=== PATIENT | male | born 1960 | race Caucasian/White ===

== ENCOUNTER 2017-05-23 06:05 | Inpatient (IN) ==
[2017-05-23] MEDS ORDERED: ALBUTEROL/IPRATROPIUM 3 ML NEB RESP TX STA (07:01)
[2017-05-23] MEDS ORDERED: cefTRIAXone 1,000 MG in SODIUM CHLORIDE 0.9% 100 ML IV STA (07:01)
[2017-05-23] MEDS ORDERED: methylPREDNISolone SOD SUC 125 MG/2 ML VIAL IV STA (07:01)
[2017-05-23 07:10] LABS: Basophils % 0.2 % (0.0-0.8); Eosinophils # 0.2 10*3/uL (0.0-0.87); Eosinophils % 1.6 % (0.00-10.9); Hematocrit 42.9 VOL% (42.0-52.0); Hemoglobin 14.4 GM/DL (14.0-18.0); Immature Granulocytes Absolute 0.12 #; Lymphocytes % 16.6 % (21.2-54.2); Mean Corpuscular HGB Conc 33.6 GM/DL (32-36); Mean Corpuscular Hemoglobin 30 PG (27-34); Mean Corpuscular Volume 89.9 FL (87-102); Mean Platelet Volume 10.4 FL (9.6-12.0); Monocytes % 8.5 % (1.7-12.7); Neutrophils # 8.7 10*3/uL (1.4-7.4); Neutrophils % 72.1 % (38.7-73.9); Platelet Count 275 T/CUMM (130-400); Red Blood Count 4.77 MC/CUMM (3.8-5.5); Red Cell Distribution Width 13.2 % (9.3-17.3); White Blood Count 12.1 T/CUMM (4-12)
[2017-05-23] MEDS ORDERED: cefTRIAXone 1,000 MG VIAL ONE (07:20)
[2017-05-23] MEDS ORDERED: methylPREDNISolone SOD SUC 125 MG/2 ML VIAL ONE (07:20)
[2017-05-23 08:27] LABS: Albumin 3.2 G/DL (3.4-5.0); Bilirubin,Total 0.5 MG/DL (0.2-1.0); Calcium 8.6 MG/DL (8.5-10.1); Magnesium 2.3 MG/DL (1.8-2.4); Osmolality,Calculated 282.3 MOS/KG (273-304); Total Protein 6.8 G/DL (6.4-8.3); Troponin I Only 0.015 NG/ML (0.00-0.045)
[2017-05-23] MEDS ORDERED: ACETAMINOPHEN 325 MG TABLET PO PRN (09:35)
[2017-05-23] MEDS ORDERED: guaiFENesin/DM ER 600-30 MG TABLET PO PRN (09:35)
[2017-05-23] MEDS ORDERED: LACTULOSE 20 GM/30 ML UDCUP PO PRN (09:35)
[2017-05-23] MEDS ORDERED: ALBUTEROL/IPRATROPIUM 3 ML NEB RESP TX PRN (09:35)
[2017-05-23] MEDS ORDERED: ONDANSETRON 4 MG/2 ML VIAL IV PRN (09:35)
[2017-05-23] MEDS ORDERED: ALBUTEROL 2.5 MG/3 ML NEB RESP TX PRN (11:00)
[2017-05-23] MEDS: ENOXAPARIN 40 MG/0.4 ML SYRINGE SUBCUT SCH (11:07)
[2017-05-23] MEDS: AZITHROMYCIN INJ 500 MG in SODIUM CHLORIDE 0.9% 250 ML IV SCH (11:35)
[2017-05-23] MEDS ORDERED: LORazepam 2 MG/1 ML VIAL IV ONE (13:57)
[2017-05-23] MEDS: methylPREDNISolone SOD SUC 40 MG/1 ML VIAL IV SCH ×2 (15:08→23:21)
[2017-05-23] MEDS: CEFEPIME 1,000 MG in SYRINGE 1 EACH IV SCH (15:09)
[2017-05-23] MEDS: ALBUTEROL/IPRATROPIUM 3 ML NEB RESP TX SCH ×2 (16:04→19:31)
[2017-05-23] MEDS: LORazepam 0.5 MG TABLET PO PRN ×2 (20:20→20:21)
[2017-05-23] MEDS ORDERED: TEMAZEPAM 15 MG CAPSULE PO SCH (21:00)
[2017-05-24] MEDS: ALBUTEROL/IPRATROPIUM 3 ML NEB RESP TX SCH ×5 (00:04→19:53)
[2017-05-24] MEDS: CEFEPIME 1,000 MG in SYRINGE 1 EACH IV SCH ×2 (01:15→14:53)
[2017-05-24] MEDS ORDERED: HALOPERIDOL 5 MG/ML AMP IV ONE (01:49)
[2017-05-24] MEDS ORDERED: LEVALBUTEROL 1.25 MG/3 ML NEB RESP TX PRN (04:12)
[2017-05-24] MEDS: LORazepam 0.5 MG TABLET PO PRN (04:57)
[2017-05-24] MEDS ORDERED: clonazePAM 0.5 MG TABLET PO SCH ×2 (05:00→06:30)
[2017-05-24 05:27] LABS: ABG Base Excess 2.8 MMOL/L (-2.5-2.5); ABG HCO3 27.3 MMOL/L (20-26); ABG Oxygen Saturation 91.2 % (95-100); ABG PCO2 41.6 MM HG (35-48); ABG PH 7.435 (7.35-7.45); ABG TCO2 28.6 MMOL/L (23-27); Allen Test Positive
[2017-05-24] MEDS ORDERED: SODIUM CHLORIDE 0.9% 1,000 ML IV ONE (05:52)
[2017-05-24] MEDS ORDERED: cefTRIAXone 1,000 MG in SYRINGE 1 EACH IV SCH (08:00)
[2017-05-24] MEDS: LORazepam 2 MG/1 ML VIAL IV PRN ×2 (08:59→23:04)
[2017-05-24] MEDS: methylPREDNISolone SOD SUC 40 MG/1 ML VIAL IV SCH ×3 (08:59→23:20)
[2017-05-24] MEDS: QUEtiapine 25 MG TABLET PO SCH ×2 (09:00→21:13)
[2017-05-24] MEDS ORDERED: PANTOPRAZOLE 40 MG TABLET PO SCH (09:00)
[2017-05-24] MEDS: SODIUM CHLORIDE 0.9% 1,000 ML IV SCH ×3 (09:28→21:14)
[2017-05-24] MEDS: ENOXAPARIN 40 MG/0.4 ML SYRINGE SUBCUT SCH (10:36)
[2017-05-24] MEDS ORDERED: LORazepam 2 MG/1 ML VIAL IV ONE (11:35)
[2017-05-24] MEDS ORDERED: AMIODARONE 150 MG/3 ML VIAL ONE (11:38)
[2017-05-24 11:48] LABS: ABG Base Excess 2.1 MMOL/L (-2.5-2.5); ABG HCO3 26.3 MMOL/L (20-26); ABG Oxygen Saturation 99.6 % (95-100); ABG PCO2 55.1 MM HG (35-48); ABG PH 7.338 (7.35-7.45); ABG TCO2 25.3 MMOL/L (23-27)
[2017-05-24] MEDS ORDERED: ETOMIDATE 20 MG/10 ML VIAL IV ONE ×2 (11:53→12:00)
[2017-05-24] MEDS ORDERED: SUCCINYLCHOLINE 200 MG/10 ML VIAL ONE (11:53)
[2017-05-24] MEDS ORDERED: MIDAZOLAM 2 MG/2 ML VIAL ONE (11:57)
[2017-05-24] MEDS ORDERED: MIDAZOLAM 2 MG/2 ML VIAL IV ONE (12:00)
[2017-05-24] MEDS ORDERED: SUCCINYLCHOLINE 200 MG/10 ML VIAL IV ONE (12:00)
[2017-05-24] MEDS ORDERED: AMIODARONE 150 MG/3 ML VIAL IV ONE (12:00)
[2017-05-24] MEDS ORDERED: PROPOFOL 1,000 MG/100 ML BOTTLE IV ONE (12:07)
[2017-05-24] MEDS ORDERED: METOPROLOL TARTRATE 5 MG/5 ML VIAL IV ONE (12:10)
[2017-05-24 12:19] LABS: Basophils % 0.1 % (0.0-0.8); Eosinophils % 0.1 % (0.00-10.9); Hematocrit 44.3 VOL% (42.0-52.0); Hemoglobin 15.4 GM/DL (14.0-18.0); Immature Granulocytes % 0.6 %; Immature Granulocytes Absolute 0.12 #; Lymphocytes # 1.3 10*3/uL (1.4-4.0); Lymphocytes % 6.8 % (21.2-54.2); Mean Corpuscular HGB Conc 34.8 GM/DL (32-36); Mean Corpuscular Hemoglobin 30 PG (27-34); Monocytes # 0.5 10*3/uL (0.11-0.8); Monocytes % 2.9 % (1.7-12.7); Neutrophils # 16.7 10*3/uL (1.4-7.4); Neutrophils % 89.5 % (38.7-73.9); Platelet Count 281 T/CUMM (130-400); Red Blood Count 5.09 MC/CUMM (3.8-5.5); Red Cell Distribution Width 12.7 % (9.3-17.3); White Blood Count 18.6 T/CUMM (4-12)
[2017-05-24] MEDS: PROPOFOL 1,000 MG/100 ML BOTTLE IV SCH ×2 (12:30→22:33)
[2017-05-24 12:33] LABS: Calcium 8.7 MG/DL (8.5-10.1); Osmolality,Calculated 282.4 MOS/KG (273-304); Potassium 4.4 MMOL/L (3.5-5.1)
[2017-05-24 12:51] LABS: ABG Base Excess -0.6 MMOL/L (-2.5-2.5); ABG Oxygen Saturation 95.1 % (95-100); ABG PO2 86.4 MM HG (80-95); ABG TCO2 32.4 MMOL/L (23-27)
[2017-05-24 12:52] LABS: ABG PCO2 77.8 MM HG (35-48); ABG PH 7.204 (7.35-7.45)
[2017-05-24] MEDS: ALBUTEROL 2.5 MG/3 ML NEB RESP TX SCH ×2 (14:36→14:48)
[2017-05-24] MEDS ORDERED: DEXTROSE 50% 25 GM/50 ML VIAL IV PRN (14:37)
[2017-05-24] MEDS ORDERED: GLUCAGON 1 MG VIAL IM PRN (14:37)
[2017-05-24 15:19] LABS: Troponin I Only < 0.015 NG/ML (0.00-0.045)
[2017-05-24 16:06] LABS: ABG Base Excess 4.1 MMOL/L (-2.5-2.5); ABG HCO3 28.1 MMOL/L (20-26); ABG Oxygen Saturation 99.1 % (95-100); ABG PH 7.422 (7.35-7.45); ABG TCO2 25.4 MMOL/L (23-27); Allen Test Positive; Pt O2 Delivery Device Ventilator
[2017-05-24 17:46] LABS: Troponin I Only < 0.015 NG/ML (0.00-0.045)
[2017-05-24] MEDS: ASPIRIN EC 81 MG TABLET PO SCH (18:46)
[2017-05-24] MEDS: METOPROLOL TARTRATE 25 MG TABLET PO SCH ×2 (18:46→20:43)
[2017-05-24] MEDS: AZITHROMYCIN INJ 500 MG in SODIUM CHLORIDE 0.9% 250 ML IV SCH (18:56)
[2017-05-24] MEDS: INSULIN REGULAR 100 UNIT/ML SUBCUT SCH ×2 (19:02→23:17)
[2017-05-24 20:12] LABS: Troponin I Only < 0.015 NG/ML (0.00-0.045)
[2017-05-25] MEDS: ALBUTEROL/IPRATROPIUM 3 ML NEB RESP TX SCH ×4 (01:34→19:56)
[2017-05-25 02:36] LABS: ABG Base Excess 1.6 MMOL/L (-2.5-2.5); ABG HCO3 26.5 MMOL/L (20-26); ABG Oxygen Saturation 97.4 % (95-100); ABG PCO2 42.4 MM HG (35-48); ABG PH 7.413 (7.35-7.45); ABG PO2 97.1 MM HG (80-95); ABG TCO2 27.8 MMOL/L (23-27); Allen Test Positive; Pt O2 Delivery Device Ventilator
[2017-05-25] MEDS: CEFEPIME 1,000 MG in SYRINGE 1 EACH IV SCH ×2 (03:15→13:40)
[2017-05-25] MEDS: PROPOFOL 1,000 MG/100 ML BOTTLE IV SCH ×5 (03:55→20:30)
[2017-05-25 04:02] LABS: Basophils % 0.1 % (0.0-0.8); Hematocrit 39.1 VOL% (42.0-52.0); Hemoglobin 13.1 GM/DL (14.0-18.0); Immature Granulocytes % 0.8 %; Immature Granulocytes Absolute 0.13 #; Lymphocytes # 0.7 10*3/uL (1.4-4.0); Lymphocytes % 4.3 % (21.2-54.2); Mean Corpuscular HGB Conc 33.5 GM/DL (32-36); Mean Corpuscular Hemoglobin 30 PG (27-34); Mean Corpuscular Volume 89.3 FL (87-102); Mean Platelet Volume 10.5 FL (9.6-12.0); Monocytes # 0.6 10*3/uL (0.11-0.8); Monocytes % 3.7 % (1.7-12.7); Neutrophils # 14.7 10*3/uL (1.4-7.4); Neutrophils % 91.1 % (38.7-73.9); Platelet Count 232 T/CUMM (130-400); Red Blood Count 4.38 MC/CUMM (3.8-5.5); Red Cell Distribution Width 13.2 % (9.3-17.3); White Blood Count 16.2 T/CUMM (4-12)
[2017-05-25 04:47] LABS: Calcium 8.3 MG/DL (8.5-10.1); Magnesium 2.6 MG/DL (1.8-2.4); Osmolality,Calculated 289.3 MOS/KG (273-304); Potassium 5.2 MMOL/L (3.5-5.1)
[2017-05-25 05:09] LABS: Phosphorous 3.9 MG/DL (2.5-4.9); Prealbumin 20.9 MG/DL (20-40)
[2017-05-25 05:29] LABS: Band Neutrophils 1 % (0-10); Lymphocytes 6 % (20-55); Segmented Neutrophils 90 % (50-85); Total Cells Counted 100
[2017-05-25 05:30] LABS: Hypochromasia 1+; Platelet Estimate Normal
[2017-05-25] MEDS: SODIUM CHLORIDE 0.9% 1,000 ML IV SCH ×3 (05:48→13:29)
[2017-05-25] MEDS: INSULIN REGULAR 100 UNIT/ML SUBCUT SCH ×3 (06:18→17:22)
[2017-05-25] MEDS ORDERED: methylPREDNISolone SOD SUC 40 MG/1 ML VIAL IV SCH (07:30)
[2017-05-25] MEDS: ASPIRIN EC 81 MG TABLET PO SCH (08:21)
[2017-05-25] MEDS: QUEtiapine 25 MG TABLET PO SCH ×2 (08:21→20:31)
[2017-05-25] MEDS: CLINDAMYCIN INJ 600 MG in PREMIX 1 EACH IV SCH ×2 (08:22→14:48)
[2017-05-25] MEDS: PANTOPRAZOLE 40 MG VIAL IV SCH (08:22)
[2017-05-25] MEDS: METOPROLOL TARTRATE 25 MG TABLET PO SCH ×2 (08:23→20:31)
[2017-05-25] MEDS: ENOXAPARIN 40 MG/0.4 ML SYRINGE SUBCUT SCH (09:08)
[2017-05-25] MEDS: ALBUTEROL 2.5 MG/3 ML NEB RESP TX SCH (10:14)
[2017-05-25] MEDS: LORazepam 2 MG/1 ML VIAL IV PRN ×2 (12:44→18:47)
[2017-05-25] MEDS: methylPREDNISolone SOD SUC 40 MG/1 ML VIAL IV SCH (20:31)
[2017-05-26] MEDS: SODIUM CHLORIDE 0.9% 1,000 ML IV SCH ×6 (00:22→23:54)
[2017-05-26] MEDS: INSULIN REGULAR 100 UNIT/ML SUBCUT SCH ×4 (00:23→18:04)
[2017-05-26] MEDS: CLINDAMYCIN INJ 600 MG in PREMIX 1 EACH IV SCH ×4 (00:25→23:55)
[2017-05-26] MEDS: ALBUTEROL/IPRATROPIUM 3 ML NEB RESP TX SCH ×4 (00:50→20:42)
[2017-05-26] MEDS: PROPOFOL 1,000 MG/100 ML BOTTLE IV SCH ×7 (02:35→21:21)
[2017-05-26] MEDS: CEFEPIME 1,000 MG in SYRINGE 1 EACH IV SCH ×2 (03:01→13:25)
[2017-05-26 04:29] LABS: ABG HCO3 26.2 MMOL/L (20-26); ABG Oxygen Saturation 98.3 % (95-100); ABG PCO2 45.1 MM HG (35-48); ABG PH 7.392 (7.35-7.45); ABG TCO2 24.3 MMOL/L (23-27)
[2017-05-26 05:48] LABS: Basophils % 0.1 % (0.0-0.8); Hematocrit 35.6 VOL% (42.0-52.0); Hemoglobin 11.9 GM/DL (14.0-18.0); Immature Granulocytes % 1.2 %; Immature Granulocytes Absolute 0.17 #; Lymphocytes # 0.8 10*3/uL (1.4-4.0); Lymphocytes % 5.2 % (21.2-54.2); Mean Corpuscular HGB Conc 33.4 GM/DL (32-36); Mean Corpuscular Hemoglobin 30 PG (27-34); Mean Corpuscular Volume 89.2 FL (87-102); Mean Platelet Volume 11.3 FL (9.6-12.0); Monocytes # 0.9 10*3/uL (0.11-0.8); Monocytes % 6.2 % (1.7-12.7); Neutrophils # 12.6 10*3/uL (1.4-7.4); Neutrophils % 87.3 % (38.7-73.9); Platelet Count 219 T/CUMM (130-400); Red Blood Count 3.99 MC/CUMM (3.8-5.5); Red Cell Distribution Width 13.2 % (9.3-17.3); White Blood Count 14.5 T/CUMM (4-12)
[2017-05-26 06:40] LABS: Calcium 8.1 MG/DL (8.5-10.1); Osmolality,Calculated 289.1 MOS/KG (273-304); Potassium 4.5 MMOL/L (3.5-5.1)
[2017-05-26] MEDS: QUEtiapine 25 MG TABLET PO SCH ×2 (08:30→21:15)
[2017-05-26] MEDS: ASPIRIN EC 81 MG TABLET PO SCH (08:30)
[2017-05-26] MEDS: METOPROLOL TARTRATE 25 MG TABLET PO SCH ×2 (08:31→21:15)
[2017-05-26] MEDS: PANTOPRAZOLE 40 MG VIAL IV SCH (08:31)
[2017-05-26] MEDS: methylPREDNISolone SOD SUC 40 MG/1 ML VIAL IV SCH ×2 (08:31→21:15)
[2017-05-26] MEDS: ENOXAPARIN 40 MG/0.4 ML SYRINGE SUBCUT SCH (09:35)
[2017-05-26] MEDS: LORazepam 2 MG/1 ML VIAL IV PRN ×2 (11:21→20:43)
[2017-05-27] MEDS: INSULIN REGULAR 100 UNIT/ML SUBCUT SCH ×4 (00:19→17:40)
[2017-05-27] MEDS: ALBUTEROL/IPRATROPIUM 3 ML NEB RESP TX SCH ×4 (00:58→19:52)
[2017-05-27] MEDS: PROPOFOL 1,000 MG/100 ML BOTTLE IV SCH ×6 (02:13→23:00)
[2017-05-27] MEDS: CEFEPIME 1,000 MG in SYRINGE 1 EACH IV SCH ×2 (02:13→13:40)
[2017-05-27 03:54] LABS: ABG Base Excess 2.6 MMOL/L (-2.5-2.5); ABG HCO3 26.7 MMOL/L (20-26); ABG Oxygen Saturation 97.6 % (95-100); ABG PCO2 47.7 MM HG (35-48); ABG PH 7.383 (7.35-7.45); ABG PO2 94.2 MM HG (80-95); ABG TCO2 25.1 MMOL/L (23-27)
[2017-05-27 04:06] LABS: Basophils % 0.1 % (0.0-0.8); Hematocrit 36.1 VOL% (42.0-52.0); Hemoglobin 11.9 GM/DL (14.0-18.0); Immature Granulocytes % 0.8 %; Immature Granulocytes Absolute 0.13 #; Lymphocytes # 0.6 10*3/uL (1.4-4.0); Lymphocytes % 3.4 % (21.2-54.2); Mean Corpuscular Hemoglobin 30 PG (27-34); Mean Corpuscular Volume 89.8 FL (87-102); Monocytes # 0.9 10*3/uL (0.11-0.8); Monocytes % 5.2 % (1.7-12.7); Neutrophils # 15.6 10*3/uL (1.4-7.4); Neutrophils % 90.5 % (38.7-73.9); Platelet Count 220 T/CUMM (130-400); Red Blood Count 4.02 MC/CUMM (3.8-5.5); Red Cell Distribution Width 13.5 % (9.3-17.3); White Blood Count 17.2 T/CUMM (4-12)
[2017-05-27 04:32] LABS: Calcium 8.2 MG/DL (8.5-10.1); Magnesium 2.1 MG/DL (1.8-2.4); Potassium 4.5 MMOL/L (3.5-5.1)
[2017-05-27 05:54] LABS: Band Neutrophils 2 % (0-10); Lymphocytes 4 % (20-55); Platelet Estimate Normal; Segmented Neutrophils 88 % (50-85); Total Cells Counted 100
[2017-05-27] MEDS: SODIUM CHLORIDE 0.9% 1,000 ML IV SCH ×5 (06:12→21:13)
[2017-05-27] MEDS: CLINDAMYCIN INJ 600 MG in PREMIX 1 EACH IV SCH ×3 (07:25→23:50)
[2017-05-27] MEDS: ENOXAPARIN 40 MG/0.4 ML SYRINGE SUBCUT SCH (08:36)
[2017-05-27] MEDS: METOPROLOL TARTRATE 25 MG TABLET PO SCH ×2 (08:36→21:13)
[2017-05-27] MEDS: ASPIRIN EC 81 MG TABLET PO SCH (08:36)
[2017-05-27] MEDS: methylPREDNISolone SOD SUC 40 MG/1 ML VIAL IV SCH ×2 (08:36→21:13)
[2017-05-27] MEDS: PANTOPRAZOLE 40 MG VIAL IV SCH (08:36)
[2017-05-27] MEDS: QUEtiapine 25 MG TABLET PO SCH ×2 (08:36→21:13)
[2017-05-27] MEDS: LORazepam 2 MG/1 ML VIAL IV PRN ×3 (09:07→23:50)
[2017-05-28] MEDS: INSULIN REGULAR 100 UNIT/ML SUBCUT SCH ×4 (00:12→18:07)
[2017-05-28] MEDS: ALBUTEROL/IPRATROPIUM 3 ML NEB RESP TX SCH ×4 (00:33→19:08)
[2017-05-28] MEDS: CEFEPIME 1,000 MG in SYRINGE 1 EACH IV SCH ×2 (01:56→13:40)
[2017-05-28 03:19] LABS: ABG Base Excess 4.1 MMOL/L (-2.5-2.5); ABG HCO3 28.1 MMOL/L (20-26); ABG Oxygen Saturation 96.9 % (95-100); ABG PCO2 48.8 MM HG (35-48); ABG PH 7.396 (7.35-7.45); ABG PO2 86.4 MM HG (80-95); ABG TCO2 26.6 MMOL/L (23-27)
[2017-05-28] MEDS: PROPOFOL 1,000 MG/100 ML BOTTLE IV SCH (05:03)
[2017-05-28 05:26] LABS: Basophils % 0.1 % (0.0-0.8); Hematocrit 34.8 VOL% (42.0-52.0); Hemoglobin 11.7 GM/DL (14.0-18.0); Immature Granulocytes % 0.7 %; Immature Granulocytes Absolute 0.09 #; Lymphocytes # 0.6 10*3/uL (1.4-4.0); Lymphocytes % 4.3 % (21.2-54.2); Mean Corpuscular HGB Conc 33.6 GM/DL (32-36); Mean Corpuscular Hemoglobin 30 PG (27-34); Mean Corpuscular Volume 89.9 FL (87-102); Mean Platelet Volume 11.1 FL (9.6-12.0); Monocytes # 0.6 10*3/uL (0.11-0.8); Neutrophils # 11.6 10*3/uL (1.4-7.4); Neutrophils % 89.9 % (38.7-73.9); Platelet Count 220 T/CUMM (130-400); Red Blood Count 3.87 MC/CUMM (3.8-5.5); Red Cell Distribution Width 13.5 % (9.3-17.3); White Blood Count 12.9 T/CUMM (4-12)
[2017-05-28 05:55] LABS: Giant Platelets Few; Hypochromasia 1+; Lymphocytes 6 % (20-55); Ovalocytes Slight; Platelet Estimate Adequate; Segmented Neutrophils 93 % (50-85); Total Cells Counted 100
[2017-05-28 06:00] LABS: Calcium 8.2 MG/DL (8.5-10.1); Osmolality,Calculated 291.8 MOS/KG (273-304); Potassium 4.5 MMOL/L (3.5-5.1)
[2017-05-28] MEDS: SODIUM CHLORIDE 0.9% 1,000 ML IV SCH ×3 (06:10→19:51)
[2017-05-28 06:13] LABS: Magnesium 2.3 MG/DL (1.8-2.4); Phosphorous 3.3 MG/DL (2.5-4.9); Prealbumin 25.4 MG/DL (20-40)
[2017-05-28] MEDS: CLINDAMYCIN INJ 600 MG in PREMIX 1 EACH IV SCH ×2 (07:43→16:44)
[2017-05-28] MEDS: QUEtiapine 25 MG TABLET PO SCH ×2 (08:30→20:45)
[2017-05-28] MEDS: ENOXAPARIN 40 MG/0.4 ML SYRINGE SUBCUT SCH (08:31)
[2017-05-28] MEDS: PANTOPRAZOLE 40 MG VIAL IV SCH (08:31)
[2017-05-28] MEDS: ASPIRIN EC 81 MG TABLET PO SCH (08:31)
[2017-05-28] MEDS: METOPROLOL TARTRATE 25 MG TABLET PO SCH (08:31)
[2017-05-28] MEDS: methylPREDNISolone SOD SUC 40 MG/1 ML VIAL IV SCH ×2 (08:36→20:42)
[2017-05-28 08:58] LABS: ABG Base Excess 6.2 MMOL/L (-2.5-2.5); ABG HCO3 31.2 MMOL/L (20-26); ABG PCO2 46.6 MM HG (35-48); ABG PH 7.444 (7.35-7.45); ABG PO2 80.8 MM HG (80-95); ABG TCO2 32.7 MMOL/L (23-27); Allen Test Positive; Pt O2 Delivery Device Ventilator
[2017-05-28 10:27] LABS: ABG Base Excess 6.7 MMOL/L (-2.5-2.5); ABG Oxygen Saturation 90.5 % (95-100); ABG PCO2 48.3 MM HG (35-48); ABG PH 7.439 (7.35-7.45); ABG TCO2 33.5 MMOL/L (23-27); Allen Test Positive
[2017-05-28] MEDS: LORazepam 2 MG/1 ML VIAL IV PRN ×3 (12:10→17:53)
[2017-05-28] MEDS ORDERED: ZIPRASIDONE 20 MG/1 ML VIAL IM ONE (13:15)
[2017-05-28] MEDS ORDERED: LORazepam 2 MG/1 ML VIAL IV ONE (13:16)
[2017-05-28] MEDS: clonazePAM 0.5 MG TABLET PO SCH ×2 (16:42→20:46)
[2017-05-28] MEDS: DILTIAZEM CD 120 MG CAPSULE PO SCH (20:46)
[2017-05-28] MEDS: METOPROLOL SUCCINATE XL 25 MG TABLET PO SCH (20:46)
[2017-05-29] MEDS: LORazepam 2 MG/1 ML VIAL IV PRN ×4 (00:05→11:59)
[2017-05-29] MEDS: CLINDAMYCIN INJ 600 MG in PREMIX 1 EACH IV SCH ×3 (00:10→15:23)
[2017-05-29] MEDS: ALBUTEROL/IPRATROPIUM 3 ML NEB RESP TX SCH ×4 (00:26→19:04)
[2017-05-29] MEDS: CEFEPIME 1,000 MG in SYRINGE 1 EACH IV SCH ×2 (02:07→14:20)
[2017-05-29 03:49] LABS: ABG Base Excess 8.4 MMOL/L (-2.5-2.5); ABG HCO3 32.1 MMOL/L (20-26); ABG Oxygen Saturation 94.1 % (95-100); ABG PCO2 46.4 MM HG (35-48); ABG PH 7.467 (7.35-7.45); ABG PO2 66.7 MM HG (80-95); ABG TCO2 28.8 MMOL/L (23-27); Allen Test Positive
[2017-05-29] MEDS: SODIUM CHLORIDE 0.9% 1,000 ML IV SCH ×2 (04:40→16:57)
[2017-05-29] MEDS ORDERED: ZIPRASIDONE 20 MG/1 ML VIAL IM PRN (06:47)
[2017-05-29] MEDS: METOPROLOL SUCCINATE XL 25 MG TABLET PO SCH ×2 (08:35→20:22)
[2017-05-29] MEDS: clonazePAM 0.5 MG TABLET PO SCH ×3 (08:35→20:21)
[2017-05-29] MEDS: QUEtiapine 25 MG TABLET PO SCH ×2 (08:35→20:21)
[2017-05-29] MEDS: DILTIAZEM CD 120 MG CAPSULE PO SCH ×2 (08:35→20:21)
[2017-05-29] MEDS: ASPIRIN EC 81 MG TABLET PO SCH (08:35)
[2017-05-29] MEDS: ENOXAPARIN 40 MG/0.4 ML SYRINGE SUBCUT SCH (08:36)
[2017-05-29] MEDS: PANTOPRAZOLE 40 MG VIAL IV SCH (08:49)
[2017-05-29] MEDS: methylPREDNISolone SOD SUC 40 MG/1 ML VIAL IV SCH ×2 (08:49→20:20)
[2017-05-29] MEDS ORDERED: QUEtiapine 25 MG TABLET PO ONE (10:30)
[2017-05-30] MEDS: ALBUTEROL/IPRATROPIUM 3 ML NEB RESP TX SCH ×4 (00:05→19:40)
[2017-05-30] MEDS: CLINDAMYCIN INJ 600 MG in PREMIX 1 EACH IV SCH ×3 (00:15→15:20)
[2017-05-30] MEDS: SODIUM CHLORIDE 0.9% 1,000 ML IV SCH ×2 (00:30→08:42)
[2017-05-30] MEDS: CEFEPIME 1,000 MG in SYRINGE 1 EACH IV SCH ×2 (02:20→15:11)
[2017-05-30] MEDS: methylPREDNISolone SOD SUC 40 MG/1 ML VIAL IV SCH (07:17)
[2017-05-30] MEDS: NYSTATIN 500,000 UNIT/5 ML UDCUP SWISH/SWAL SCH ×4 (08:50→21:05)
[2017-05-30] MEDS: DILTIAZEM CD 120 MG CAPSULE PO SCH ×2 (08:50→21:05)
[2017-05-30] MEDS: METOPROLOL SUCCINATE XL 25 MG TABLET PO SCH ×2 (08:50→21:04)
[2017-05-30] MEDS: ASPIRIN EC 81 MG TABLET PO SCH (08:51)
[2017-05-30] MEDS: QUEtiapine 25 MG TABLET PO SCH ×2 (08:51→21:05)
[2017-05-30] MEDS: clonazePAM 0.5 MG TABLET PO SCH ×3 (08:51→21:05)
[2017-05-30] MEDS: ENOXAPARIN 40 MG/0.4 ML SYRINGE SUBCUT SCH (08:51)
[2017-05-30] MEDS: PANTOPRAZOLE 40 MG VIAL IV SCH (08:52)
[2017-05-31] MEDS: SODIUM CHLORIDE 0.9% 1,000 ML IV SCH ×2 (00:13→08:50)
[2017-05-31] MEDS: CLINDAMYCIN INJ 600 MG in PREMIX 1 EACH IV SCH ×4 (00:13→22:30)
[2017-05-31] MEDS: ALBUTEROL/IPRATROPIUM 3 ML NEB RESP TX SCH ×4 (01:02→19:32)
[2017-05-31] MEDS: CEFEPIME 1,000 MG in SYRINGE 1 EACH IV SCH ×2 (02:52→15:38)
[2017-05-31 05:55] LABS: Basophils % 0.1 % (0.0-0.8); Hematocrit 42.6 VOL% (42.0-52.0); Hemoglobin 14.5 GM/DL (14.0-18.0); Immature Granulocytes % 0.4 %; Immature Granulocytes Absolute 0.05 #; Lymphocytes # 0.5 10*3/uL (1.4-4.0); Lymphocytes % 3.9 % (21.2-54.2); Mean Corpuscular Hemoglobin 30 PG (27-34); Mean Corpuscular Volume 87.8 FL (87-102); Mean Platelet Volume 10.6 FL (9.6-12.0); Monocytes # 0.5 10*3/uL (0.11-0.8); Monocytes % 3.9 % (1.7-12.7); Neutrophils # 11.1 10*3/uL (1.4-7.4); Neutrophils % 91.7 % (38.7-73.9); Platelet Count 357 T/CUMM (130-400); Red Blood Count 4.85 MC/CUMM (3.8-5.5); White Blood Count 12.1 T/CUMM (4-12)
[2017-05-31 06:28] LABS: Giant Platelets Few; Hypochromasia 1+; Lymphocytes 2 % (20-55); Platelet Estimate Adequate; Segmented Neutrophils 96 % (50-85); Total Cells Counted 100
[2017-05-31 06:41] LABS: Calcium 8.7 MG/DL (8.5-10.1); Magnesium 2.2 MG/DL (1.8-2.4); Potassium 4.1 MMOL/L (3.5-5.1)
[2017-05-31] MEDS: methylPREDNISolone SOD SUC 40 MG/1 ML VIAL IV SCH (07:32)
[2017-05-31] MEDS: QUEtiapine 25 MG TABLET PO SCH ×2 (08:42→22:16)
[2017-05-31] MEDS: METOPROLOL SUCCINATE XL 25 MG TABLET PO SCH ×2 (08:42→22:16)
[2017-05-31] MEDS: ASPIRIN EC 81 MG TABLET PO SCH (08:42)
[2017-05-31] MEDS: clonazePAM 0.5 MG TABLET PO SCH ×3 (08:42→22:18)
[2017-05-31] MEDS: DILTIAZEM CD 120 MG CAPSULE PO SCH ×2 (08:42→22:18)
[2017-05-31] MEDS: PANTOPRAZOLE 40 MG VIAL IV SCH (08:43)
[2017-05-31] MEDS: ENOXAPARIN 40 MG/0.4 ML SYRINGE SUBCUT SCH (08:45)
[2017-05-31] MEDS: NYSTATIN 500,000 UNIT/5 ML UDCUP SWISH/SWAL SCH ×4 (08:50→22:15)
[2017-05-31] MEDS ORDERED: ALBUTEROL 2.5 MG/3 ML NEB RESP TX PRN (20:43)
[2017-06-01] MEDS: ALBUTEROL/IPRATROPIUM 3 ML NEB RESP TX SCH ×4 (00:19→19:05)
[2017-06-01] MEDS: CEFEPIME 1,000 MG in SYRINGE 1 EACH IV SCH (01:38)
[2017-06-01] MEDS: NYSTATIN 500,000 UNIT/5 ML UDCUP SWISH/SWAL SCH ×4 (08:52→21:50)
[2017-06-01] MEDS: QUEtiapine 25 MG TABLET PO SCH ×2 (08:53→21:52)
[2017-06-01] MEDS: ASPIRIN EC 81 MG TABLET PO SCH (08:53)
[2017-06-01] MEDS: PANTOPRAZOLE 40 MG VIAL IV SCH (08:53)
[2017-06-01] MEDS: clonazePAM 0.5 MG TABLET PO SCH ×4 (08:53→21:55)
[2017-06-01] MEDS: DILTIAZEM CD 120 MG CAPSULE PO SCH ×2 (08:53→21:49)
[2017-06-01] MEDS: METOPROLOL SUCCINATE XL 50 MG TABLET PO SCH (08:53)
[2017-06-01] MEDS: ENOXAPARIN 40 MG/0.4 ML SYRINGE SUBCUT SCH (08:53)
[2017-06-01] MEDS: predniSONE 20 MG TABLET PO SCH (08:53)
[2017-06-01] MEDS: cephALEXin 500 MG CAPSULE PO SCH ×2 (14:32→21:50)
[2017-06-02] MEDS: ALBUTEROL/IPRATROPIUM 3 ML NEB RESP TX SCH ×4 (01:07→19:38)
[2017-06-02] MEDS: cephALEXin 500 MG CAPSULE PO SCH ×3 (06:18→21:51)
[2017-06-02] MEDS: predniSONE 20 MG TABLET PO SCH (08:57)
[2017-06-02] MEDS: QUEtiapine 25 MG TABLET PO SCH ×2 (08:57→21:52)
[2017-06-02] MEDS: clonazePAM 0.5 MG TABLET PO SCH ×3 (08:57→21:52)
[2017-06-02] MEDS: ASPIRIN EC 81 MG TABLET PO SCH (08:57)
[2017-06-02] MEDS: NYSTATIN 500,000 UNIT/5 ML UDCUP SWISH/SWAL SCH ×4 (08:57→21:53)
[2017-06-02] MEDS: DILTIAZEM CD 120 MG CAPSULE PO SCH ×2 (08:57→21:51)
[2017-06-02] MEDS: METOPROLOL SUCCINATE XL 50 MG TABLET PO SCH (08:57)
[2017-06-02] MEDS: ENOXAPARIN 40 MG/0.4 ML SYRINGE SUBCUT SCH (08:58)
[2017-06-02] MEDS: PANTOPRAZOLE 40 MG VIAL IV SCH (09:03)
[2017-06-03] MEDS: ALBUTEROL/IPRATROPIUM 3 ML NEB RESP TX SCH ×4 (01:39→19:57)
[2017-06-03 03:16] LABS: Basophils % 0.1 % (0.0-0.8); Eosinophils # 0.1 10*3/uL (0.0-0.87); Eosinophils % 0.8 % (0.00-10.9); Hemoglobin 13.6 GM/DL (14.0-18.0); Immature Granulocytes % 0.5 %; Immature Granulocytes Absolute 0.06 #; Lymphocytes # 1.7 10*3/uL (1.4-4.0); Lymphocytes % 15.2 % (21.2-54.2); Mean Corpuscular Hemoglobin 30 PG (27-34); Mean Corpuscular Volume 87.1 FL (87-102); Mean Platelet Volume 10.6 FL (9.6-12.0); Monocytes # 0.8 10*3/uL (0.11-0.8); Monocytes % 6.8 % (1.7-12.7); Neutrophils # 8.5 10*3/uL (1.4-7.4); Neutrophils % 76.6 % (38.7-73.9); Platelet Count 294 T/CUMM (130-400); Red Blood Count 4.59 MC/CUMM (3.8-5.5); Red Cell Distribution Width 13.2 % (9.3-17.3); White Blood Count 11.1 T/CUMM (4-12)
[2017-06-03 03:47] LABS: Calcium 8.8 MG/DL (8.5-10.1); Osmolality,Calculated 289.7 MOS/KG (273-304); Potassium 3.7 MMOL/L (3.5-5.1)
[2017-06-03] MEDS: cephALEXin 500 MG CAPSULE PO SCH ×3 (05:49→22:07)
[2017-06-03] MEDS: QUEtiapine 25 MG TABLET PO SCH ×2 (08:03→22:06)
[2017-06-03] MEDS: NYSTATIN 500,000 UNIT/5 ML UDCUP SWISH/SWAL SCH ×4 (08:04→22:07)
[2017-06-03] MEDS: ASPIRIN EC 81 MG TABLET PO SCH (08:04)
[2017-06-03] MEDS: predniSONE 20 MG TABLET PO SCH (08:04)
[2017-06-03] MEDS: clonazePAM 0.5 MG TABLET PO SCH ×3 (08:04→22:07)
[2017-06-03] MEDS: ENOXAPARIN 40 MG/0.4 ML SYRINGE SUBCUT SCH (08:04)
[2017-06-03] MEDS: METOPROLOL SUCCINATE XL 50 MG TABLET PO SCH (08:04)
[2017-06-03] MEDS: DILTIAZEM CD 120 MG CAPSULE PO SCH ×2 (08:04→22:07)
[2017-06-03] MEDS: PANTOPRAZOLE 40 MG VIAL IV SCH (08:08)
[2017-06-04] MEDS: ALBUTEROL/IPRATROPIUM 3 ML NEB RESP TX SCH ×2 (01:13→07:40)
[2017-06-04] MEDS: cephALEXin 500 MG CAPSULE PO SCH (05:30)
[2017-06-04] MEDS: QUEtiapine 25 MG TABLET PO SCH (09:10)
[2017-06-04] MEDS: clonazePAM 0.5 MG TABLET PO SCH (09:10)
[2017-06-04] MEDS: ASPIRIN EC 81 MG TABLET PO SCH (09:10)
[2017-06-04] MEDS: predniSONE 20 MG TABLET PO SCH (09:10)
[2017-06-04] MEDS: DILTIAZEM CD 120 MG CAPSULE PO SCH (09:10)
[2017-06-04] MEDS: NYSTATIN 500,000 UNIT/5 ML UDCUP SWISH/SWAL SCH (09:11)
[2017-06-04] MEDS: PANTOPRAZOLE 40 MG VIAL IV SCH (09:11)
[2017-06-04] MEDS: METOPROLOL SUCCINATE XL 50 MG TABLET PO SCH (09:11)
[2017-06-04] MEDS: ENOXAPARIN 40 MG/0.4 ML SYRINGE SUBCUT SCH (09:11)
[2017-06-04 11:03] VITALS: BP 108/68
== END 2017-06-04 10:30 | disposition home or self-care (01) | DRG 140 ==
LOC: EDBD → EDUNIT# → N.ED 06:05 → SUATTDRO 08:43 → N.EDINP 08:43 → N.5E 09:59 → N.ICU 05-24 05:44 → N.5E 05-30 12:11
PROVIDERS: ADMIT Internal Medicine

== ENCOUNTER 2022-07-08 04:29 | Observation (INO) ==
[2022-07-08] MEDS ORDERED: SODIUM CHLORIDE 0.9% 1,000 ML IV STA (04:51)
[2022-07-08] MEDS ORDERED: ALBUTEROL/IPRATROPIUM 3 ML NEB RESP TX STA (04:52)
[2022-07-08] MEDS ORDERED: methylPREDNISolone SOD SUC 125 MG/2 ML VIAL IV STA (04:52)
[2022-07-08 04:54] LABS: Basophils # 0.1 10*3/uL (0.0-0.2); Basophils % 1.4 % (0.0-0.8); Eosinophils # 0.3 10*3/uL (0.0-0.87); Eosinophils % 4.3 % (0.00-10.9); Hemoglobin 15.8 GM/DL (14.0-18.0); Immature Granulocytes % 0.3 %; Immature Granulocytes Absolute 0.02 #; Lymphocytes # 1.9 10*3/uL (1.4-4.0); Lymphocytes % 24.9 % (21.2-54.2); Mean Corpuscular HGB Conc 32.9 GM/DL (32-36); Mean Corpuscular Volume 93.2 FL (87-102); Mean Platelet Volume 10.6 FL (9.6-12.0); Monocytes # 0.6 10*3/uL (0.11-0.8); Monocytes % 7.7 % (1.7-12.7); Neutrophils % 61.4 % (38.7-73.9); Platelet Count 320 T/CUMM (130-400); Red Blood Count 5.15 MC/CUMM (3.8-5.5); Red Cell Distribution Width 14.1 % (9.3-17.3); White Blood Count 7.6 T/CUMM (4-12)
[2022-07-08 05:02] LABS: PT Patient Result 10.9 SECS (10.1-12.1); Partial Thromboplastin Time 30.5 SECS (23.7-32.9)
[2022-07-08 05:09] LABS: Albumin 4.2 G/DL (3.4-5.0); Bilirubin,Total 0.4 MG/DL (0.20-1.00); Calcium 9.5 MG/DL (8.5-10.1); Osmolality,Calculated 285.1 MOS/KG (273-304); Potassium 4.1 MMOL/L (3.5-5.1); Total Protein 7.1 G/DL (6.4-8.2)
[2022-07-08 05:27] LABS: Platelet Estimate Normal
[2022-07-08] MEDS ORDERED: DOXYCYCLINE HYCLATE INJ 100 MG in SODIUM CHLORIDE 0.9% 100 ML IV STA (05:51)
[2022-07-08 07:15] LABS: Bilirubin,Urine Negative (Negative); Blood, Urine Negative (Negative); Glucose,Urine (UA) Negative (Negative); Hyaline Casts,Urine 1 /LPF (0-3); Ketones,Urine Trace mg/dL (Negative); Mucus,Urine Occasional /LPF (Occasional); Nitrite,Urine Negative (Negative); Protein,Urine Trace mg/dL (Negative); RBC,Urine <1 /HPF (0-4); Squamous Epithelial Cell,Urine Occasional /HPF (0-10); Urine Appearance Clear (Clear); Urine Color Yellow (Yellow); Urine Specific Gravity 1.025 (1.001-1.035); Urine Urobilinogen 0.2 eU/dL (<2.0); Urine pH 5.5 (4.5-8.0)
[2022-07-08 07:34] LABS: Barbiturates Screen,Urine Negative (Negative); Benzodiazepines Screen,Urine Negative (Negative); Cannabinoid Screen,Urine Negative (Negative); Opiate Screen,Urine Negative (Negative); Phencyclidine Screen,Urine Negative (Negative)
[2022-07-08] MEDS ORDERED: LACTULOSE 20 GM/30 ML UDCUP PO PRN (07:51)
[2022-07-08] MEDS ORDERED: CALCIUM CARBONATE CHEW 500 MG TABLET PO PRN (07:51)
[2022-07-08] MEDS ORDERED: ACETAMINOPHEN 325 MG TABLET PO PRN (07:51)
[2022-07-08] MEDS ORDERED: ONDANSETRON 4 MG/2 ML VIAL IV PRN (07:51)
[2022-07-08] MEDS ORDERED: ALBUTEROL 2.5 MG/3 ML NEB RESP TX PRN (07:51)
[2022-07-08] MEDS ORDERED: ALUMINUM/MAGNES/SIMETH MAX STR 30 ML UDCUP PO PRN (07:51)
[2022-07-08] MEDS ORDERED: SIMETHICONE CHEW 125 MG TABLET PO PRN (07:51)
[2022-07-08] MEDS: LACTATED RINGERS 1,000 ML IV SCH ×2 (08:12→21:34)
[2022-07-08] MEDS ORDERED: DILTIAZEM 60 MG TABLET PO SCH (09:00)
[2022-07-08] MEDS: METOPROLOL SUCCINATE XL 50 MG TABLET PO SCH (09:39)
[2022-07-08] MEDS: QUEtiapine 100 MG TABLET PO SCH ×2 (09:39→21:16)
[2022-07-08] MEDS: PANTOPRAZOLE 40 MG TABLET PO SCH (09:39)
[2022-07-08] MEDS: ENOXAPARIN 40 MG/0.4 ML SYRINGE SUBCUT SCH (09:39)
[2022-07-08] MEDS: POLYETHYLENE GLYCOL POWDER 17 GM PACK PO SCH (09:39)
[2022-07-08] MEDS: FLUTICASONE/SALMETEROL 250-50 DISKUS 14 DOSE INH SCH ×2 (11:25→21:16)
[2022-07-08] MEDS: ALBUTEROL/IPRATROPIUM 3 ML NEB RESP TX SCH ×2 (13:56→19:25)
[2022-07-08] MEDS: methylPREDNISolone SOD SUC 40 MG/1 ML VIAL IV SCH ×2 (14:14→21:17)
[2022-07-08] MEDS: DOXYCYCLINE HYCLATE INJ 100 MG in SODIUM CHLORIDE 0.9% 100 ML IV SCH (18:08)
[2022-07-08] MEDS ORDERED: MONTELUKAST 10 MG TABLET PO SCH (21:00)
[2022-07-08] MEDS: levETIRAcetam 500 MG TABLET PO SCH (21:16)
[2022-07-08] MEDS: THEOPHYLLINE ER 300 MG TABLET PO SCH (21:17)
[2022-07-09] MEDS: ALBUTEROL/IPRATROPIUM 3 ML NEB RESP TX SCH ×2 (00:03→07:30)
[2022-07-09] MEDS: methylPREDNISolone SOD SUC 40 MG/1 ML VIAL IV SCH (06:38)
[2022-07-09 06:45] LABS: Basophils % 0.1 % (0.0-0.8); Hematocrit 37.6 VOL% (42.0-52.0); Hemoglobin 12.4 GM/DL (14.0-18.0); Immature Granulocytes % 0.7 %; Immature Granulocytes Absolute 0.07 #; Lymphocytes # 1.2 10*3/uL (1.4-4.0); Lymphocytes % 11.5 % (21.2-54.2); Mean Platelet Volume 11.1 FL (9.6-12.0); Monocytes # 0.4 10*3/uL (0.11-0.8); Monocytes % 4.4 % (1.7-12.7); Neutrophils % 83.3 % (38.7-73.9); Platelet Count 257 T/CUMM (130-400); Red Blood Count 4.13 MC/CUMM (3.8-5.5); Red Cell Distribution Width 13.9 % (9.3-17.3)
[2022-07-09] MEDS: DOXYCYCLINE HYCLATE INJ 100 MG in SODIUM CHLORIDE 0.9% 100 ML IV SCH (06:46)
[2022-07-09 07:12] LABS: Calcium 9.1 MG/DL (8.5-10.1); Osmolality,Calculated 291.7 MOS/KG (273-304); Potassium 3.7 MMOL/L (3.5-5.1); Risk Ratio 2.22; Thyroid Stimulating Hormone 1.42 uIU/ml (0.358-3.74)
[2022-07-09] MEDS: QUEtiapine 100 MG TABLET PO SCH (08:22)
[2022-07-09] MEDS: POLYETHYLENE GLYCOL POWDER 17 GM PACK PO SCH (08:22)
[2022-07-09] MEDS: levETIRAcetam 500 MG TABLET PO SCH (08:22)
[2022-07-09] MEDS: PANTOPRAZOLE 40 MG TABLET PO SCH (08:23)
[2022-07-09] MEDS: THEOPHYLLINE ER 300 MG TABLET PO SCH (08:23)
[2022-07-09] MEDS: FLUTICASONE/SALMETEROL 250-50 DISKUS 14 DOSE INH SCH (08:23)
[2022-07-09] MEDS: METOPROLOL SUCCINATE XL 50 MG TABLET PO SCH (08:23)
[2022-07-09] MEDS: ENOXAPARIN 40 MG/0.4 ML SYRINGE SUBCUT SCH (08:25)
[2022-07-09 08:34] VITALS: BP 129/82
[2022-07-09] MEDS ORDERED: LORazepam 0.5 MG TABLET PO SCH (09:00)
[2022-07-09] MEDS ORDERED: DILTIAZEM CD 180 MG CAPSULE PO SCH (09:00)
== END 2022-07-09 10:31 | disposition home or self-care (01) ==
LOC: N.EDINP 04:29 → N.ED 04:29 → SUATTDRO 07:51 → N.2E 13:15
PROVIDERS: ADMIT Internal Medicine; ATTEND Family Medicine